=== PATIENT | male | born 1980 | race Caucasian/White ===

== ENCOUNTER 2021-06-26 08:38 | Outpatient (CLI) | payer BC, OTHER ==
[2021-06-26] MEDS ORDERED: BARIUM SULFATE 135 ML SUSP.RECON (E-Z-HD) PO ONE (08:58)
== END 2021-06-26 19:25 | disposition home or self-care (01) ==
LOC: SUS 08:38
DX: Z01.818 Encounter for other preprocedural examination (principal); R10.84 Generalized abdominal pain; J98.4 Other disorders of lung
CPT/HCPCS: 71046-TC; 74220-TC; 74240-TC; 76700-TC